=== PATIENT | female | born 1935 | race Two or more races ===

== ENCOUNTER → 2017-04-20 | Outpatient (CLI) | payer OTHER, MEDICAID | LOC: FIMAGING 11:09 | PROVIDERS: ATTEND Family Medicine | DX: Z12.31 Encounter for screening mammogram for malignant neoplasm of breast (principal); Z90.11 Acquired absence of right breast and nipple | CPT/HCPCS: G0202-52 ==

== ENCOUNTER → 2017-05-23 | Outpatient (CLI) | payer OTHER, MEDICAID | LOC: FIMAGING 13:58 | PROVIDERS: ATTEND Family Medicine | DX: R92.0 Mammographic microcalcification found on diagnostic imaging of breast (principal); Z90.11 Acquired absence of right breast and nipple | CPT/HCPCS: G0206 ==

== ENCOUNTER → 2017-06-05 | Day surgery (SDC) | payer OTHER, MEDICAID ==
[~2017-06-05] MED LIST: BUPIVACAINE 0.5% 10 ML SDV ONE; LIDOCAINE 1% 300 MG/30 ML SDV ONE; THROMBIN (BOVINE) 5,000 UNIT VIAL TP ONE
== END | disposition home or self-care (01) ==
LOC: FIMAGING 07:12
PROVIDERS: ATTEND Family Medicine
DX: D05.12 Intraductal carcinoma in situ of left breast (principal); R92.0 Mammographic microcalcification found on diagnostic imaging of breast; Z85.3 Personal history of malignant neoplasm of breast; Z90.11 Acquired absence of right breast and nipple
CPT/HCPCS: G0206

== ENCOUNTER 2017-09-03 06:34 | Day surgery (SDC) | payer OTHER, MEDICAID ==
[2017-09-03] MEDS ORDERED: LIDOCAINE 1% 2 ML INJ ID PRN (06:49)
[2017-09-03] MEDS ORDERED: LR 1,000 ML IV ONE (06:49)
[2017-09-03] MEDS ORDERED: LIDOCAINE 1% 300 MG/30 ML SDV ONE ×2 (07:40→08:12)
[2017-09-03] MEDS ORDERED: BUPIVACAINE/EPI 0.5% 30 ML SDV ONE (08:03)
[2017-09-03] MEDS ORDERED: BUPIVACAINE 0.5% 30 ML SDV ONE (08:03)
[2017-09-03] MEDS ORDERED: NA BICARBONATE 50 MEQ/50 ML VIAL ONE (08:12)
--- NOTE | 2017-09-03 08:58 | PDHPUP ---
History & Physical Update H&P update statement: This history and physical update is based on an assessment of the patient which was completed after admission or registration (within 24 hours), but prior to the surgery/procedure. no changes H&P update: no change in patient's condition since H&P completed
--- NOTE | 2017-09-03 09:14 | PDANEPAE ---
ANE Past Medical History - Cardiovascular History Hx Hypertension: Yes Hx Arrhythmias: No Hx Chest Pain: No Hx Coronary Artery / Peripheral Vascular Disease: No Hx CHF / Valvular Disease: No Hx Palpitations: No - Pulmonary History Hx COPD: No Hx Asthma/Reactive Airway Disease: No Hx Recent Upper Respiratory Infection: No Hx Oxygen in Use at Home: No Hx Sleep Apnea: No Sleep Apnea Screening Result - Last Documented: Negative - Neurologic History Hx Cerebrovascular Accident: No Hx Seizures: No Hx Dementia: No - Endocrine History Hx Diabetes: No - Renal History Hx Renal Disorders: No - Liver History Hx Hepatic Disorders: No - Neurological & Psychiatric Hx Hx Neurological and Psychiatric Disorders: No - Cancer History Hx Cancer: Yes Cancer History Comment: BREAST - Congenital Disorder History Hx Congenital Disorders: No - GI History Hx Gastrointestinal Disorders: Yes Gastrointestinal History Comment: PREV COLECTOMY - Chronic Pain History Chronic Pain: No - Surgical History Prior Surgeries: ROMEO CATARACT. COLECTOMY RELATED TO DIVERTICULOSIS 03/2016 IN [place]. LAP SAMY. RT BREAST MASTECTOMY 2006. HYSTERECTOMY. APPENDECTOMY ANE Review of Systems Review of Systems: - Exercise capacity METS (RN): 4 METS ANE Patient History - Allergies Allergies/Adverse Reactions: iodine [Iodine] Allergy (Intermediate, Verified 07/13/09 11:23) Swelling/neck,face,throat Penicillins Allergy (Intermediate, Verified 07/13/09 11:22) Swelling/neck,face,throat shellfish derived Allergy (Verified 08/14/17 15:46) Anaphylaxis - Home Medications Home Medications: Aspirin 81mg (*) DAILY06 08/14/17 [Last Taken 08/20/17] Atorvastatin Calcium DAILY06 08/14/17 [Last Taken 09/02/17] Carvedilol BID 08/14/17 [Last Taken 09/03/17 05:30] Herbals/Supplements -Info Only DAILY 08/14/17 [Last Taken 08/20/17] Losartan Potassium BID 08/14/17 [Last Taken 09/03/17] - NPO status NPO Since - Liquids (Date): 09/02/17 NPO Since - Liquids (Time): 18:00 NPO Since - Solids (Date): 09/02/17 NPO Since - Solids (Time): 12:00 - Smoking Hx Smoking Status: Never smoked ANE Labs/Vital Signs - Vital Signs Blood Pressure: 180/74 Heart Rate: 62 Respiratory Rate: 16 O2 Sat (%): 93 Height: 147.32 cm Weight: 65.771 kg ANE Physical Exam - Airway Mallampati Score: Class 2 - ASA Status ASA Status: II ANE Anesthesia Plan Anesthesia Plan: GA w LMA
[2017-09-03] MEDS ORDERED: fentaNYL 100 MCG/2 ML INJ ONE (09:32)
[2017-09-03] MEDS ORDERED: PROPOFOL 200 MG/20 ML VIAL ONE (09:32)
[2017-09-03] MEDS ORDERED: LIDOCAINE 2% JELLY 5 ML TUBE ONE (09:41)
[2017-09-03] MEDS ORDERED: ONDANSETRON 4 MG/2 ML VIAL ONE (09:41)
[2017-09-03] MEDS ORDERED: METOCLOPRAMIDE 10 MG/2 ML VIAL ONE (09:41)
[2017-09-03] MEDS ORDERED: NALOXONE HCL 0.4 MG/ML INJ IVP PRN (10:26)
[2017-09-03] MEDS ORDERED: PROMETHAZINE HCL 25 MG/ML INJ IVP PRN (10:26)
[2017-09-03] MEDS ORDERED: DEXAMETHASONE 4 MG/ML VIAL IVP PRN (10:26)
[2017-09-03] MEDS ORDERED: fentaNYL 100 MCG/2 ML INJ IVP PRN (10:26)
[2017-09-03] MEDS ORDERED: LR 500 ML IV PRN (10:26)
--- NOTE | 2017-09-03 10:27 | POSTANESTH ---
Post Anesthetic Evaluation Cardiovascular Status: Normal, Stable Respiratory Status: Normal, Stable Level of Consciousness/Mental Status: Can Participate in Eval Pain Control: Adequate, Prn Tx Ordered Nausea/Vomiting Control: Adequate, Prn Tx Ordered Complications Possibly Related to Anesthesia: None Noted
--- NOTE | 2017-09-03 10:29 | POSTOPPROG ---
Post Op Note Date of Operation: 09/03/17 Surgeon: Reagan Gonzáles Anesthesia: LMA Pre-op Diagnosis: dcis l breast Post-op Diagnosis: same Indication: same Procedure: lumpectomy, needle localized left breast Findings: clip retrieved Inf/Abcess present in the surg proc area at time of surgery?: No EBL: Minimal
[2017-09-03 10:42] VITALS: TEMP 97.7
--- NOTE | 2017-09-03 10:47 | GOP ---
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 POSTOPERATIVE DIAGNOSIS: Ductal carcinoma in situ left breast. PROCEDURE PERFORMED: Needle localized lumpectomy, left breast. FINDINGS: INDICATIONS: An 82-year-old female with a stereotactic biopsy showing DCIS left breast. DESCRIPTION OF PROCEDURE: General anesthetic, the patient was supine. There was a needle placed by the radiologist in the left upper outer quadrant. An incision was made in a curved fashion following the natural skin lines and the subcutaneous fat , a generous area of breast parenchyma arou nd the needle and all the way down to the pectoralis major muscle which was identified. The wound wa s excised. Orientation was maintained, and the specimen was inked. Minor bleeding points were contr olled with cautery. The wound was closed with layers of absorbable suture and Dermabond. The specim en radiograph confirmed retrieval of the clip. /[id number]/MODL
[2017-09-03 10:58] VITALS: BP 131/82; PULSE 57; RESP 14; O2SAT 94
== END 2017-09-03 11:55 | disposition home or self-care (01) ==
LOC: FSGY 06:34
PROVIDERS: ATTEND Surgery
PROC: 0HBU0ZZ Excision of Left Breast, Open Approach (ICD-10-PCS; principal; 2017-09-03 09:30)
DX: D05.12 Intraductal carcinoma in situ of left breast (principal)
CPT/HCPCS: J2405; J2704; J2765; J3010

== ENCOUNTER → 2018-09-23 | Outpatient (CLI) | payer OTHER, MEDICAID | LOC: FIMAGING 09:37 | PROVIDERS: ATTEND Internal Medicine Hematology & Oncology | DX: Z12.31 Encounter for screening mammogram for malignant neoplasm of breast (principal); Z85.3 Personal history of malignant neoplasm of breast; Z90.11 Acquired absence of right breast and nipple ==